=== PATIENT | male | born 1980 | race Caucasian/White ===

== ENCOUNTER 2016-12-30 16:54 | Emergency (ER) | payer OTHER ==
[2016-12-30] MEDS ORDERED: SODIUM CHLORIDE 0.9% 1,000 ML IV ONE ×2 (18:08)
[2016-12-30] MEDS ORDERED: DIPHENOX/ATROPINE 2.5/0.025 MG TABLET PO STA (18:08)
[2016-12-30] MEDS ORDERED: ONDANSETRON 4 MG/2 ML VIAL IVP STA ×2 (18:08→19:37)
[2016-12-30] MEDS ORDERED: KETOROLAC 60 MG/2 ML VIAL IVP STA (18:08)
[2016-12-30] MEDS ORDERED: KETOROLAC 30 MG/ML VIAL ONE (18:10)
[2016-12-30] MEDS ORDERED: DIPHENOX/ATROPINE 2.5/0.025 MG TABLET PO ONE (18:10)
[2016-12-30] MEDS ORDERED: ONDANSETRON 4 MG/2 ML VIAL ONE ×2 (18:11→19:45)
[2016-12-30] MEDS ORDERED: HYDROmorphone 1 MG/ML SYRINGE IVP STA (19:37)
[2016-12-30] MEDS ORDERED: HYDROmorphone 1 MG/ML SYRINGE ONE (19:45)
[2016-12-30] MEDS ORDERED: ONDANSETRON ODT 4 MG Prepack 2 TL PRN (20:46)
[2016-12-30] MEDS ORDERED: HYDROcod/ACET 5/325 Prepack 6 PO ONE ×2 (20:46→21:31)
[2016-12-30] MEDS ORDERED: ONDANSETRON ODT 4 MG Prepack 2 TL ONE (21:31)
== END 2016-12-30 21:41 | disposition home or self-care (01) ==
DX: E86.0 Dehydration (principal); K52.9 Noninfective gastroenteritis and colitis, unspecified
CPT/HCPCS: 36415; 80053; 83690; 96374; 96375; 96376; 99283; 99284; A9270; J1170

== ENCOUNTER 2019-02-10 17:42 | Outpatient (CLI) | payer OTHER ==
--- NOTE | 2019-02-11 16:46 | MRI Report ---
Reason: PARESTHESIA OF SKIN Procedure Date: 02/10/2019 Accession Number: [id number] / [id number] Procedure: MRI - Cervical Spine W/O CPT Code: FULL RESULT: EXAM: MRI CERVICAL SPINE WITHOUT CONTRAST EXAM DATE: 02/10/2019 06:51 PM. CLINICAL HISTORY: Paresthesia of skin. COMPARISONS: None. TECHNIQUE: Multiplanar, multisequence T1-weighted and fluid-sensitive sequences of the cervical spine without contrast. Other: None. FINDINGS: Evaluation mildly limited by patient motion and artifact. Neurologic Structures: The visualized posterior fossa structures are unremarkable. No signal abnormality in the visualized spinal cord. Underlying congenital central canal stenosis with osseous diameter at C4 measuring 12 mm. Alignment: No scoliosis or spondylolisthesis. Straightening of the normal cervical lordosis. Bone Marrow: Heterogeneous T1 isointense signal. This may be due to reconversion. No gross fracture or focal osseous lesion. Minimal diskogenic edema at C5-C6. Interspace Levels/Facets: C1-C2: Mild degenerative changes anteriorly. C2-C3: Minimal disk osteophyte complex, asymmetric to the left. Minimal central canal stenosis. C3-C4: Minimal disk osteophyte complex. Minimal central canal stenosis. C4-C5: Minimal disk osteophyte complex, asymmetric to the right. Mild central canal stenosis with mass effect on the cervical cord. C5-C6: Small disk osteophyte complex, asymmetric to the left with focal paracentral component. Moderate central canal stenosis. Mild bilateral neural foramen stenosis. C6-C7: Minimal disk osteophyte complex. No stenosis. C7-T1: Unremarkable. Musculature: No edema or fatty atrophy. Other: The paravertebral and prevertebral soft tissues are unremarkable. IMPRESSION: 1. Underlying congenital central canal stenosis. 2. Mild degenerative disk changes. 3. Moderate central canal stenosis at C5-C6. Mild central canal stenosis at C4-C5. Minimal central canal stenosis at C3-C4 and C2-C3. 4. Mild bilateral neural foramen stenosis at C5-C6. RADIA
== END 2019-02-10 17:43 | disposition home or self-care (01) ==
LOC: DI 17:42
PROVIDERS: ATTEND Student in an Organized Health Care Education/Training Program
DX: M50.31 Other cervical disc degeneration, high cervical region (principal); M48.02 Spinal stenosis, cervical region
CPT/HCPCS: 72141

== ENCOUNTER 2019-08-10 08:51 | Emergency (ER) | payer OTHER ==
[2019-08-10] MEDS ORDERED: LORazepam 1 MG TABLET PO STA (09:06)
--- NOTE | 2019-08-10 09:16 | ED Physician Documentation ---
History of Present Illness - Stated complaint Stated Complaint: RACING HEART/AFTER ENERGY DRINK - Chief complaint Chief Complaint: Cardiac - History obtained from History obtained from: Patient, Family - History of Present Illness Timing: Prior to arrival Severity Comments: moderate Quality: feels jittery, tremulous, heart racing Radiates to: none Improved by: nothing Worsened by: nothing Associated symptoms: no chest pain, sob, no abdominal pain, nausaea, vomiting, no leg pain or swelling, no fever. Reports associated tingling around the mouth and lips and tremulousness, states he couldn't drive because he was so shakey - Treatment prior to arrival Treatment prior to arrival: none - Additonal information Additional information: Pt states symptoms today started just prior to arrival after taking an energy drink called Rain. Reports he also takes unisom for sleep and took some last night, also takes prescription Claritin for allergies and is not sure if it has pseudoephedrine in it. Denies other supplements or OTC meds. Review of Systems Ten Systems: 10 systems reviewed and negative Constitutional: reports: Other (feels generally warm). denies: Fever Throat: reports: Other (mouth is dry) Cardiac: reports: Palpitations. denies: Chest pain / pressure, Pedal edema, Calf pain Respiratory: denies: Dyspnea, Cough, Wheezing GI: reports: Reviewed and negative. denies: Abdominal Pain, Nausea, Vomiting, Diarrhea Skin: denies: Rash Musculoskeletal: reports: Reviewed and negative Neurologic: reports: Other (tingling and numbness around the mouth) Psychiatric: reports: Anxiety Endocrine: reports: Reviewed and negative Immunocompromised: reports: Reviewed and negative PD PAST MEDICAL HISTORY - Past Medical History Past Medical History: Yes Cardiovascular: None Respiratory: None Endocrine/Autoimmune: None GI: GERD - Past Surgical History Past Surgical History: No - Present Medications Home Medications: Ambulatory Orders Medication Instructions Recorded Confirmed Loratadine/Pseudoephedrine 10 mg ORAL DAILY 08/10/19 08/10/19 [Claritin-D 24 Hour Tablet] Omeprazole 20 mg PO DAILY 08/10/19 08/10/19 - Allergies Allergies/Adverse Reactions: Allergies Allergy/AdvReac Type Severity Reaction Status Date / Time No Known Drug Allergies Allergy Verified 08/10/19 08:59 - Social History Does the pt smoke?: No Smoking Status: Former smoker Does the pt drink ETOH?: Yes Does the pt have substance abuse?: No - Immunizations Immunizations are current?: Yes - POLST Patient has POLST: No PD ED PE NORMAL - Vitals Vital signs reviewed: Yes - General General: Alert and oriented X 3, No acute distress, Well developed/nourished, Ot her (anxious appearing, tremulous ) - HEENT HEENT: Atraumatic, PERRL, EOMI, Moist mucous membranes, Pharynx benign - Neck Neck: Supple, no meningeal sign, No JVD - Cardiac Cardiac: No murmur, No gallop, No rub, Other (mild tachycardia ) - Respiratory Respiratory: No respiratory distress, Clear bilaterally - Abdomen Abdomen: Soft, Non tender - Male Male : Deferred - Rectal Rectal: Deferred - Derm Derm: Normal color, Warm and dry, No rash - Extremities Extremities: No deformity, No tenderness to palpate, Normal ROM s pain, No edema, No calf tenderness / cord - Neuro Neuro: Alert and oriented X 3 Eye Opening: Spontaneous Motor: Obeys Commands Verbal: Oriented GCS Score: 15 - Psych Psych: Other (animated, anxious ) Results - Vitals Vitals: Vital Signs - 24 hr 08/10/19 08/10/19 08/10/19 08:59 09:02 09:40 Temperature 36.7 C Heart Rate 108 H 98 94 Respiratory 16 16 20 Rate Blood Pressure 167/103 H 166/92 H 122/89 H O2 Saturation 100 100 100 08/10/19 10:30 Temperature 37.2 C Heart Rate 91 Respiratory 18 Rate Blood Pressure 137/79 H O2 Saturation 99 Oxygen O2 Source Room air - EKG (time done) 08:59 Rate: Rate (enter#) (98) Rhythm: NSR [place]: Normal Intervals: Normal [place] QRS: Normal Ischemia: Normal ST segments. No: ST elevation c/w ischemia, ST elevation c/w repol, ST depression, T wave inversion Computer interpretation: Agree with computer - Labs Labs: Laboratory Tests 08/10/19 09:15 POC Whole Bld Glucose 89 PD MEDICAL DECISION MAKING - ED course Complexity details: reviewed results, re-evaluated patient, considered differential, d/w patient, d/w family ED course: ddx- anxiety, panic attack, stimulant or medication adverse effect, arrhythmia, pvcs 39 y/o M with hx and exam as documented, normal ekg, and mild tachycardia, sinus rhythm on the monitor, normal sats and no sob. He took an energy drink, unisom and claritin within a few hours time. All of which can cause these symptoms. His EKG and vitals are stable. He was having a lot of shakiness and tingling, perioral paresthesias which are all improved after ativan. Pt is well appearing and is stable for discharge with outpt f/u as needed and return precautions given if worsening. Departure - Departure Disposition: 01 Home, Self Care Clinical Impression: Adverse effect of cardiac-stimulant glycosides and drugs of similar action, initial encounter Medication adverse effect Qualifiers: Encounter type: initial encounter Qualified Code(s): T50.905A - Adverse effect of unspecified drugs, medicaments and biological substances, initial encounter Condition: Stable Record reviewed to determine appropriate education?: Yes Instructions: ED Palpitations, ED Panic Attack Follow-Up: CESAR MCNAMARA MD [Primary Care Provider] - As Needed Comments: Your ekg, glucose and physical exam today were all normal and suggestive of an adverse effect of the stimulant drink you drank and may have been worsened by the use of unisom which also causes heart palpitations and claritin if it contains pseudoephedrine. Do not combine these medications with stimulants. Follow up with your doctor if needed. Forms: Activity restrictions
[2019-08-10 10:30] VITALS: BP 137/79
== END 2019-08-10 11:02 | disposition home or self-care (01) ==
LOC: ED 08:51
DX: R20.2 Paresthesia of skin (principal); R25.1 Tremor, unspecified; R00.0 Tachycardia, unspecified; T46.0X5A Adverse effect of cardiac-stimulant glycosides and drugs of similar action, initial encounter; Z87.891 Personal history of nicotine dependence
CPT/HCPCS: 93005; 99283; 99284; J8499

== ENCOUNTER 2019-09-14 12:26 | Outpatient (CLI) | payer OTHER | END 2019-09-14 12:27 | disposition EMS.NT | LOC: EMS 12:26 | PROVIDERS: ATTEND Surgery | DX: F41.9 Anxiety disorder, unspecified (principal) ==

== ENCOUNTER 2019-09-24 11:07 | Emergency (ER) | payer OTHER ==
--- NOTE | 2019-09-24 11:47 | XRAY Report ---
Reason: Chest pain Procedure Date: 09/24/2019 Accession Number: [id number] / [id number] Procedure: XR - Chest 1 View X-Ray CPT Code: 94585 Final Report FULL RESULT: EXAM: CHEST RADIOGRAPHY EXAM DATE: 09/24/2019 11:37 AM. CLINICAL HISTORY: Chest pain, lightheadedness, fatigue COMPARISON: None. TECHNIQUE: 1 view. FINDINGS: Lungs/Pleura: No focal opacities evident. No pleural effusion. No pneumothorax. Mediastinum: Within exam limitations, the cardiomediastinal contour is normal. Other: None. IMPRESSION: Normal single view chest. RADIA
--- NOTE | 2019-09-24 12:37 | ED Physician Documentation ---
PD HPI CHEST PAIN - Stated complaint Stated Complaint: WEAKNESS/CHEST FLUTTERS - Chief complaint Chief Complaint: Cardiac - History obtained from History obtained from: Patient - History of Present Illness Timing - onset: Other (For the last 3 months this 39-year-old gentleman has had palpitations, its an intermittent sensation of a fluttering in his chest that lasts for minutes at a time and then he feels like it spreads out through his chest. It is associated with shortness of breath when it happens. [place] presumed and he was started on Paxil 3 days ago, he feels slightly worse now. At the time of my evaluation he is asymptomatic in normal sinus rhythm on the monitor.) Review of Systems Constitutional: denies: Fever, Chills Cardiac: denies: Chest pain / pressure, Pedal edema, Calf pain Respiratory: denies: Cough, Hemoptysis, Wheezing PD PAST MEDICAL HISTORY - Past Medical History Cardiovascular: None Respiratory: None Endocrine/Autoimmune: None GI: GERD - Past Surgical History Past Surgical History: No - Present Medications Home Medications: Ambulatory Orders Medication Instructions Recorded Confirmed Omeprazole 20 mg PO DAILY 08/10/19 08/10/19 PARoxetine [Paxil] 10 mg PO DAILY 09/24/19 09/24/19 traZODone [Desyrel] 50 mg PO HS 09/24/19 09/24/19 - Allergies Allergies/Adverse Reactions: Allergies Allergy/AdvReac Type Severity Reaction Status Date / Time No Known Drug Allergies Allergy Verified 09/24/19 11:19 - Social History Does the pt smoke?: No Smoking Status: Former smoker Does the pt drink ETOH?: Yes Does the pt have substance abuse?: No - Immunizations Immunizations are current?: Yes - POLST Patient has POLST: No PD ED PE NORMAL - Vitals Vital signs reviewed: Yes - General General: Alert and oriented X 3, No acute distress - HEENT HEENT: PERRL, EOMI - Neck Neck: Supple, no meningeal sign, No bony TTP - Cardiac Cardiac: RRR, No murmur - Abdomen Abdomen: Normal bowel sounds, Soft, Non tender - Extremities Extremities: No edema, No calf tenderness / cord - Neuro Neuro: Alert and oriented X 3, Normal speech Results - Vitals Vitals: Vital Signs - 24 hr 09/24/19 09/24/19 09/24/19 11:16 11:19 12:39 Temperature 36.6 C Heart Rate 85 77 118 H Respiratory 18 18 17 Rate Blood Pressure 132/88 H 127/76 142/86 H O2 Saturation 99 100 99 09/24/19 13:05 Temperature Heart Rate 85 Respiratory Rate Blood Pressure O2 Saturation Oxygen O2 Source Room air - EKG (time done) 1125 Rate: Rate (enter#) (81) Rhythm: NSR [place]: Normal Intervals: Normal [place] QRS: Normal Ischemia: Non specific changes. No: ST elevation c/w ischemia, ST elevation c/w repol Compare to prior EKG: Unchanged from prior EKG Computer interpretation: Agree with computer - Labs Labs: Laboratory Tests 09/24/19 09/24/19 09/24/19 12:30 12:30 12:30 WBC 4.1 L RBC 4.86 Hgb 14.4 Hct 44.9 MCV 92.4 MCH 29.6 MCHC 32.1 RDW 11.9 L Plt Count 257 MPV 9.7 Neut # (Auto) 2.1 Lymph # (Auto) 1.5 [place] # (Auto) 0.4 Eos # (Auto) 0.2 Baso # (Auto) 0.0 Absolute Nucleated RBC 0.00 Nucleated RBC % 0.0 Sodium 140 Potassium 4.1 Chloride 102 Carbon Dioxide 29 Anion Gap 9.0 BUN 17 Creatinine 1.1 Estimated GFR (MDRD) 74 L Glucose 95 Calcium 9.1 Total Bilirubin 0.8 AST 15 ALT 18 Alkaline Phosphatase 40 L Troponin I High Sens < 2.3 L Total Protein 7.2 Albumin 4.3 Globulin 2.9 Albumin/Globulin Ratio 1.5 Lipase 34 PD MEDICAL DECISION MAKING - ED course ED course: 39-year-old gentleman with palpitations, subacute but worsening. No arrhythmias on the monitor despite him trying to do a lot of exercise in the room while on the monitor which usually re-creates it. He was advised to continue the Paxil and follow-up with his doctor for consideration of echo and/or Holter monitoring. Subsequent to writing the above though he did have a single symptomatic PVC on the monitor which re-created his symptoms thus clinching the diagnosis. 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 Departure - Departure Disposition: 01 Home, Self Care Clinical Impression: Palpitation Condition: Good Record reviewed to determine appropriate education?: Yes Instructions: ED Palpitations Comments: [place] consider echocardiogram and/or Holter monitoring for further evaluation, I recommend continuing the antidepressant for now as it would not be considered to have kicked in yet. And it may still be helpful. Return for new or worsening symptoms.
[2019-09-24 12:41] LABS: BASOPHILS % (AUTO) 0.7 %; EOSINOPHILS # (AUTO) 0.2 10^3/uL (0.0-0.7); EOSINOPHILS % (AUTO) 3.9 %; HGB - HEMOGLOBIN 14.4 g/dL (14.0-18.0); LYMPHOCYTES # (AUTO) 1.5 10^3/uL (1.5-3.5); LYMPHOCYTES % (AUTO) 35.2 %; MEAN CORPUSCULAR HEMOGLOBIN 29.6 pg (27.0-31.0); MEAN CORPUSCULAR HGB CONC 32.1 g/dL (32.0-36.0); MEAN CORPUSCULAR VOLUME 92.4 fL (80.0-94.0); MEAN PLATELET VOLUME 9.7 fL (7.4-11.4); MONOCYTES # (AUTO) 0.4 10^3/uL (0.0-1.0); NEUTROPHILS # (AUTO) 2.1 10^3/uL (1.5-6.6); PLT - PLATELET COUNT 257 10^3/uL (130-450); RED BLOOD COUNT 4.86 10^6/uL (4.70-6.10); RED CELL DISTRIBUTION WIDTH 11.9 % (12.0-15.0); WHITE BLOOD COUNT 4.1 x10^3/uL (4.8-10.8)
[2019-09-24 12:51] LABS: ALBUMIN 4.3 g/dL (3.2-5.5); ALBUMIN/GLOBULIN RATIO 1.5 (1.0-2.2); BILIRUBIN,TOTAL 0.8 mg/dL (0.2-1.0); CALCIUM 9.1 mg/dL (8.5-10.3); CREATININE 1.1 mg/dL (0.6-1.2); TOTAL PROTEIN 7.2 g/dL (6.7-8.2)
[2019-09-24 13:16] VITALS: BP 137/96
== END 2019-09-24 13:16 | disposition home or self-care (01) ==
LOC: ED 11:07
DX: I49.3 Ventricular premature depolarization (principal); K21.9 Gastro-esophageal reflux disease without esophagitis; Z87.891 Personal history of nicotine dependence
CPT/HCPCS: 36415; 71045; 80053; 83690; 84484; 85025; 93005; 99284

== ENCOUNTER 2019-10-28 10:59 | Outpatient (CLI) | payer OTHER | END 2019-10-28 11:00 | disposition critical access hospital (66) | LOC: EMS 10:59 | PROVIDERS: ATTEND Surgery | DX: R42 Dizziness and giddiness (principal); R03.0 Elevated blood-pressure reading, without diagnosis of hypertension | CPT/HCPCS: A0425; A0429 ==

== ENCOUNTER 2019-10-28 11:19 | Emergency (ER) | payer OTHER ==
[2019-10-28 11:58] LABS: BASOPHILS % (AUTO) 0.7 %; EOSINOPHILS # (AUTO) 0.2 10^3/uL (0.0-0.7); EOSINOPHILS % (AUTO) 4.4 %; HGB - HEMOGLOBIN 14.7 g/dL (14.0-18.0); LYMPHOCYTES # (AUTO) 1.3 10^3/uL (1.5-3.5); MEAN CORPUSCULAR HEMOGLOBIN 28.3 pg (27.0-31.0); MEAN CORPUSCULAR VOLUME 88.3 fL (80.0-94.0); MEAN PLATELET VOLUME 9.9 fL (7.4-11.4); MONOCYTES # (AUTO) 0.3 10^3/uL (0.0-1.0); MONOCYTES % (AUTO) 8.1 %; NEUTROPHILS # (AUTO) 2.3 10^3/uL (1.5-6.6); NEUTROPHILS % (AUTO) 55.6 %; PLT - PLATELET COUNT 235 10^3/uL (130-450); RED CELL DISTRIBUTION WIDTH 11.5 % (12.0-15.0); WHITE BLOOD COUNT 4.1 x10^3/uL (4.8-10.8)
[2019-10-28 12:01] LABS: MUDS CUTOFF CONCENTRATIONS CUTOFF CONC BELOW:
[2019-10-28 12:16] LABS: ALBUMIN 4.4 g/dL (3.2-5.5); ALBUMIN/GLOBULIN RATIO 1.6 (1.0-2.2); BILIRUBIN,TOTAL 0.8 mg/dL (0.2-1.0); CALCIUM 9.1 mg/dL (8.5-10.3); TOTAL PROTEIN 7.2 g/dL (6.7-8.2)
[2019-10-28 12:25] LABS: AMPHETAMINE SCREEN,URINE NEGATIVE (NEGATIVE); BENZODIAZEPINES SCREEN, URINE NEGATIVE (NEGATIVE); COCAINE SCREEN URINE NEGATIVE (NEGATIVE); METHADONE SCREEN, URINE NEGATIVE (NEGATIVE); METHAMPHETAMINES SCREEN, URINE NEGATIVE (NEGATIVE); OPIATE SCREEN, URINE NEGATIVE (NEGATIVE); OXYCODONE SCREEN, URINE NEGATIVE (NEGATIVE); PROPOXYPHENE SCREEN, URINE NEGATIVE (NEGATIVE); TRICYCLIC ANTIDEPRESSANT,URINE NEGATIVE (NEGATIVE)
--- NOTE | 2019-10-28 12:52 | ED Physician Documentation ---
History of Present Illness - Stated complaint Stated Complaint: DIZZY, LIGHT HEADED - Chief complaint Chief Complaint: General - History obtained from History obtained from: Patient, EMS - History of Present Illness Timing: Today (39-year-old gentleman with history of anxiety and PVCs was in his usual state of health driving his girlfriend to work. She noted that his face looked red. He dropped her off and subsequent to that started to feel dizzy and presyncopal. He went to the pharmacy and checked his blood pressure and it was high, with a high systolic of 160. There was no chest pain or trouble breathing. No palpitations. Now feels basically back to normal.) - Treatment prior to arrival Treatment prior to arrival: It started shortly after taking his Paxil, has been on Paxil for a long time but increase the dose from 10 mg to 20 mg about a week or 2 ago. Review of Systems Constitutional: denies: Fever, Chills, Myalgias, Fatigue Cardiac: denies: Chest pain / pressure, Palpitations Respiratory: denies: Dyspnea, Cough PD PAST MEDICAL HISTORY - Past Medical History Cardiovascular: None Respiratory: None Endocrine/Autoimmune: None GI: GERD - Past Surgical History Past Surgical History: No - Present Medications Home Medications: Ambulatory Orders Medication Instructions Recorded Confirmed Omeprazole 20 mg PO DAILY 08/10/19 08/10/19 PARoxetine [Paxil] 10 mg PO DAILY 09/24/19 09/24/19 Propranolol [Inderal] 10 mg PO DAILY 10/28/19 10/28/19 - Allergies Allergies/Adverse Reactions: Allergies Allergy/AdvReac Type Severity Reaction Status Date / Time No Known Drug Allergies Allergy Verified 10/28/19 11:31 - Social History Does the pt smoke?: No Smoking Status: Never smoker Does the pt drink ETOH?: No Does the pt have substance abuse?: No - Immunizations Immunizations are current?: Yes - POLST Patient has POLST: No PD ED PE NORMAL - Vitals Vital signs reviewed: Yes - General General: Alert and oriented X 3, No acute distress - HEENT HEENT: PERRL, EOMI - Neck Neck: No bony TTP, No bruit - Cardiac Cardiac: RRR, No murmur - Respiratory Respiratory: No respiratory distress, Clear bilaterally - Abdomen Abdomen: Normal bowel sounds, Soft, Non tender - Back Back: No CVA TTP, No spinal TTP - Derm Derm: Normal color, Warm and dry - Extremities Extremities: No edema, No calf tenderness / cord - Neuro Neuro: Alert and oriented X 3, No motor deficit, No sensory deficit, Normal speech Results - Vitals Vitals: Vital Signs - 24 hr 10/28/19 10/28/19 11:20 11:35 Temperature 36.7 C Heart Rate 82 76 Respiratory 16 20 Rate Blood Pressure 114/67 135/89 H O2 Saturation 100 99 Oxygen O2 Source Room air - Labs Labs: Laboratory Tests 10/28/19 10/28/19 10/28/19 11:30 11:43 11:43 WBC 4.1 L RBC 5.20 Hgb 14.7 Hct 45.9 MCV 88.3 MCH 28.3 MCHC 32.0 RDW 11.5 L Plt Count 235 MPV 9.9 Neut # (Auto) 2.3 Lymph # (Auto) 1.3 L [place] # (Auto) 0.3 Eos # (Auto) 0.2 Baso # (Auto) 0.0 Absolute Nucleated RBC 0.00 Nucleated RBC % 0.0 Sodium 138 Potassium 4.1 Chloride 100 L Carbon Dioxide 30 Anion Gap 8.0 BUN 17 Creatinine 1.0 Estimated GFR (MDRD) 83 L Glucose 101 H Calcium 9.1 Total Bilirubin 0.8 AST 15 ALT 18 Alkaline Phosphatase 41 L Troponin I High Sens Total Protein 7.2 Albumin 4.4 Globulin 2.8 Albumin/Globulin Ratio 1.6 Lipase 35 Urine Opiates Screen NEGATIVE Ur Oxycodone Screen NEGATIVE Urine Methadone Screen NEGATIVE Ur Propoxyphene Screen NEGATIVE Ur Barbiturates Screen NEGATIVE Ur Tricyclics Screen NEGATIVE Ur Phencyclidine Scrn NEGATIVE Ur Amphetamine Screen NEGATIVE U Methamphetamines Scrn NEGATIVE U Benzodiazepines Scrn NEGATIVE Urine Cocaine Screen NEGATIVE U Cannabinoids Screen NEGATIVE 10/28/19 11:43 WBC RBC Hgb Hct MCV MCH MCHC RDW Plt Count MPV Neut # (Auto) Lymph # (Auto) [place] # (Auto) Eos # (Auto) Baso # (Auto) Absolute Nucleated RBC Nucleated RBC % Sodium Potassium Chloride Carbon Dioxide Anion Gap BUN Creatinine Estimated GFR (MDRD) Glucose Calcium Total Bilirubin AST ALT Alkaline Phosphatase Troponin I High Sens < 2.3 L Total Protein Albumin Globulin Albumin/Globulin Ratio Lipase Urine Opiates Screen Ur Oxycodone Screen Urine Methadone Screen Ur Propoxyphene Screen Ur Barbiturates Screen Ur Tricyclics Screen Ur Phencyclidine Scrn Ur Amphetamine Screen U Methamphetamines Scrn U Benzodiazepines Scrn Urine Cocaine Screen U Cannabinoids Screen PD MEDICAL DECISION MAKING - ED course ED course: This is a 39-year-old gentleman with an episode of flushing and presyncope with a normal exam here and basically unremarkable labs. It started after taking Paxil which may or may not be relevant, he had a recent dose change but he has been on the current dose for a week or 2 without similar symptoms. Watchful waiting was advised. Departure - Departure Disposition: 01 Home, Self Care Clinical Impression: Flushing reaction, Elevated blood pressure reading Condition: Good Record reviewed to determine appropriate education?: Yes Comments: The cause of your symptoms today is not clear, your work-up here is negative. Return for new or worsening symptoms and [place]
[2019-10-28 12:55] VITALS: BP 126/75
== END 2019-10-28 13:02 | disposition home or self-care (01) ==
LOC: EDUNIT# → ED 11:19
DX: R23.2 Flushing (principal); R03.0 Elevated blood-pressure reading, without diagnosis of hypertension; R42 Dizziness and giddiness; F41.9 Anxiety disorder, unspecified
CPT/HCPCS: 36415; 80053; 80306; 83690; 84484; 85025; 93005; 99282; 99283

== ENCOUNTER 2019-11-01 14:21 | Outpatient (CLI) | payer OTHER ==
[2019-11-01 17:49] VITALS: BP 125/83
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
== END 2019-11-01 14:22 | disposition home or self-care (01) ==
LOC: SC 14:21
PROVIDERS: ATTEND Internal Medicine Pulmonary Disease
DX: R06.83 Snoring (principal); E66.9 Obesity, unspecified; Z68.30 Body mass index [BMI] 30.0-30.9, adult
CPT/HCPCS: 99203; 99212

== ENCOUNTER 2019-11-13 19:28 | Outpatient (CLI) | payer OTHER | END 2019-11-13 19:29 | disposition home or self-care (01) | LOC: SC 19:28 | PROVIDERS: ATTEND Internal Medicine Pulmonary Disease | DX: R06.83 Snoring (principal); G47.8 Other sleep disorders | CPT/HCPCS: 95810 ==

== ENCOUNTER 2019-12-21 17:04 | Outpatient (CLI) | payer OTHER ==
--- NOTE | 2019-12-21 13:57 | SLEEP CARE CONSULTATION ---
Information from patient questionnaire entered by Eladia Medley. I have reviewed and concur with the information entered by Eladia Medley. This document represents the service I personally performed and the decisions made by me, Radha Vega RN, MSN, MARKETING INFORMATION ANALYST. History of Present Illness Service Date and Time: 12/21/2019 1330 Initial [place] Sleepiness Scale score: 10 Additional HPI information: CHEO MAI returns for video follow up to discuss results of the recently performed polysomnography. I explained the pathophysiology behind obstructive sleep apnea. Patient does not have sleep apnea and was advised how weight gain could increase the risk of dev eloping sleep apnea in the future. I strongly encouraged the patient to lose weight. Patient does not have significant sleep disordered breathing but has elevated AHI in supine position so advised positional therapy. Methods to achieve positional management therapy were discussed; such as, positioning with pillows, wearing a T-shirt with tennis balls sewn into the back, Rematee shirt, Zzomba belt and Slumberbump belt. Pamphlets provided on how to obtain the commercially available products. Patient has also has moderate to loud snoring. Snoring can be reduced by weight loss. Weight loss is best achieved with diet consult. Patient instructed to contact PCP for referral. Snoring can also be treated with an oral appliance from a dentist. Advised to check insurance coverage. In addition, an ENT evaluation can be do to see if other treatment is indicated. Patient counseled not drink alcohol less than 4 hours before bedtime as it can increase snoring and apnea. Patient was cautioned about risks of drowsy driving until sleepiness symptoms resolve. Patient denies drowsy driving. Sleep Study - Results Polysomnography/Home Sleep Study results: The quality of the study is good. The patient had reduced sleep efficiency due to sleep onset insomnia and a few awakenings during the night. The sleep architecture was abnormal for sleep fragmentation and reduced amount of time spent in REM sleep. Respiratory monitoring showed no significant sleep disordered breathing (AHI = 3.8) or hypoxia (melania oxygen saturation of 90%). The few respiratory events occurred almost exclusively during supine sleep (supine AHI = 7.7; non-supine = 2.15). Snore was moderate to loud in intensity. There was no significant periodic leg movement of sleep. Cardiac rhythm was normal sinus rhythm without significant arrhythmia. No abnormal behavior (parasomnia) observed during the night. CONCLUSIONS and RECOMMENDATIONS: 1. Primary Snore (ICD-10 R06.83), light to loud, but no significant sleep disordered breathing except when the patient slept supine. Because the supine AHI was elevated at 7.7, the patient should avoid sleeping supine. Allergies and Home Medications Home medication list reviewed: No (no changes stated) Review of Systems Review of systems same as previous: Yes Physical Exam Height: 5 ft 11 in Impression and Plan Snoring but no significant sleep disordered breathing except in supine position with supine AHI 7.7. Patient advised to avoid supine sleep to reduce sleep disruption and daytime sleepiness by using one of the methods described earlier. I also discussed that often weight loss will reduce snoring as well as apnea risk. An oral appliance can also be used for snoring. This would require a dental consultation. Patient is advised to check if insurance will cover. An ENT consult can also be helpful to determine if any other treatment is an option. Since he is moving, [facility] is [facility] to see if [facility] management is working or if other treatment indicated. Patient advised he can obtain a copy of his sleep study from [facility] medical records on web or by calling. * Positional management therapy. * Attempt to lose weight * Avoid alcohol consumption near bedtime * The patient is cautioned about driving until sleepiness is completely resolved. * [facility] Visit Type: Telehealth Video (to minimized the risk of COVOD19 exposure, the patient agreed to this visit and billing of insurance) Video Type: [employer] Patient Location: Home Location of Provider: Home Time Spent with Patient (minutes): 15 Provider Statement: I spent 100% of the Telehealth Video Call with the patient with greater than 50% spent counseling the patient and coordination of care.
== END 2019-12-21 17:05 | disposition home or self-care (01) ==
LOC: SC 17:04
PROVIDERS: ATTEND Nurse Practitioner Family
DX: R06.83 Snoring (principal); G47.10 Hypersomnia, unspecified; R06.81 Apnea, not elsewhere classified; G47.8 Other sleep disorders